=== PATIENT | female | born 1940 | race Caucasian/White ===

== ENCOUNTER → 2016-11-01 | Outpatient (CLI) | payer OTHER ==
--- NOTE | 2016-11-01 17:23 | MA ---
Screening Digital Mammogram With Tomosynthesis and iCAD - November 01, 2016 Indication: Routine screening. Personal history of bilateral breast cancer. Technique: Standard digital CC projections were obtained. Digital breast tomosynthesis was performed in the MLO projection with reconstruction at 1.0-mm slice thickness. Composite MLO views were recons tructed. This examination was processed by the iCAD computer-aided detection system. Comparison: August 2015, February 2014, January 2013, and December 2010 Breast density: Type C. Findings: CAD was reviewed. Heterogeneous indeterminate microcalcifications have developed along the anterior margin of the left lumpectomy bed. Bilateral lumpectomy scarring is otherwise unchanged. Impression: Increasing indeterminate microcalcifications along the anterior margin of the left lumpec lottie bed may be delayed dystrophic calcification associated with fat necrosis. BI-RADS 0: Needs additional imaging evaluation. Recommendation: Spot magnified CC, MLO and true lateral views of the left lumpectomy bed. The patient's information is entered into a reminder system with a target due date for her next mammo gram. [facility] will send a result letter to the patient.
== END ==
LOC: FIMAGING 15:34
DX: Z12.31 Encounter for screening mammogram for malignant neoplasm of breast (principal); Z85.3 Personal history of malignant neoplasm of breast
CPT/HCPCS: G0202

== ENCOUNTER → 2016-11-20 | Outpatient (CLI) | payer OTHER ==
--- NOTE | 2016-11-20 09:55 | MA ---
Diagnostic Digital Mammogram Left Breast With iCAD Analysis Reason for examination: Evaluate increasing left breast microcalcifications identified on the screeni ng study November 01, 2016. Technique: Craniocaudal and oblique views are obtained. The examination is processed by the iCAD comp uter-aided detection system. Findings: Additional views confirm a cluster of coarse microcalcifications which have an appearance o f evolving benign macrocalcification.. No associated soft tissue mass is seen. Impression: Probably benign microcalcifications, BI-RADS 3. Recommendation: 6 month unilateral mammographic follow-up. I have reviewed this examination with Dr. Hodge and he is in agreement with the interpretation as w ell as follow-up recommendation. A verbal report with follow-up recommendation was given to the patient. [facility] with send a result letter.
== END ==
LOC: FIMAGING 09:24
PROVIDERS: ATTEND Internal Medicine Hematology & Oncology
DX: R92.0 Mammographic microcalcification found on diagnostic imaging of breast (principal)
CPT/HCPCS: G0206

== ENCOUNTER → 2017-05-15 | Outpatient (CLI) | payer OTHER | LOC: FIMAGING 14:17 | PROVIDERS: ATTEND Internal Medicine Hematology & Oncology | DX: R92.1 Mammographic calcification found on diagnostic imaging of breast (principal) | CPT/HCPCS: G0206 ==

== ENCOUNTER 2017-05-16 18:06 | Emergency (ER) | payer OTHER ==
[2017-05-16 18:23] VITALS: TEMP 98.2
--- NOTE | 2017-05-16 18:48 | EDPHY ---
H & P Stated Complaint: ? infection r elbow/fall1 week ago Time Seen by Provider: 05/16/17 18:48 - Personal History Current Tetanus/Diphtheria Vaccine: Unsure - Medical/Surgical History Hx Asthma: No Hx Chronic Respiratory Disease: No Hx Diabetes: No Hx Cardiac Disease: No Hx Renal Disease: No Hx Cirrhosis: No Hx Alcoholism: No Hx HIV/AIDS: No Hx Splenectomy or Spleen Trauma: No Other PMH: ostophrosis, Breast CA; B lumpectomy w/ lymph node removal, ploymyalgia ,. Ovarian cyst, R knee scope; L foot fx; appy; - Social History Smoking Status: Former smoker Constitutional: Initial Vital Signs Temperature (C) 36.8 C 05/16/17 18:21 Heart Rate 94 05/16/17 18:21 Respiratory Rate 16 05/16/17 18:21 Blood Pressure 162/81 H 05/16/17 18:21 O2 Sat (%) 95 05/16/17 18:21 O2 Delivery Mode Room Air Allergies/Adverse Reactions: No Allergies [NKDA] Allergy (Verified 05/16/17 18:20) Home Medications: Medication Instructions Recorded Calcium/Magnesium/Vit D3 [Calcium 2 each PO DAILY 11/16/15 500 mg Tablet] Cholecalciferol Vit D3 [Vitamin D3 1,000 units PO DAILY 11/16/15 (*)] Lisinopril [Zestril 40 mg (*)] 40 mg PO HS 11/16/15 Prolia Unk Dose 1 dose SC Q180D 11/16/15 amLODIPine BESYLATE [Norvasc 2.5 2.5 mg PO HS 11/16/15 mg (*)] Acetaminophen [Tylenol 325mg (*)] 325 - 650 mg PO Q6 PRN #0 tab 12/09/15 Cephalexin [Keflex Oral Liquid] 500 mg PO TID #300 bottle 05/16/17 Medical Decision Making ED Course/Re-evaluation: CHIEF COMPLAINT: Infection to right arm HISTORY OF PRESENT ILLNESS: This patient is a 76 year old female complaining of possible infection of a wound on her right arm secondary to a mechanical fall several days ago. She has been treating her multiple abrasions, but noted one area became swollen and red. Today, the area is painful and she has noticed a purulent discharge. She denies fever, chills, nausea, vomiting, or other associated symptoms. REVIEW OF SYSTEMS: A 10 point review of systems was performed and is negative with the exception of the elements mentioned in the history of present illness. PHYSICAL EXAM: HR, BP, O2 Sat, RR. Temp noted General Appearance: Alert, well hydrated, appropriate, and non-toxic appearing. Head: Atraumatic without scalp tenderness or obvious injury Eyes: Pupils equal, round, reactive to light and accommodation, EOMI, no trauma , no injection. Ears: Clear bilaterally, no perforation, normal landmarks Nose: Atraumatic, no rhinorrhea, clear. Throat: There is no erythema or exudates, no lesions, normal tonsils, mucus membranes moist. Neck: Supple, nontender, no lymphadenopathy. Respiratory: No retractions, no distress, no wheezes, and no accessory muscle use. Lungs are clear to auscultation bilaterally. Cardiovascular: Regular rate and rhythm, no murmurs, rubs, or gallops. Good capillary refill all extremities. Gastrointestinal: Abdomen is soft, nontender, non-distended, no masses, no rebound, no guarding, no peritoneal signs. Musculoskeletal: Normal active ROM of all extremities, atraumatic. Neurological: Alert, appropriate, and interactive. Nonfocal neuro exam. Skin: Quarter-sized swollen, erythematous area on right forearm just distal to the elbow with a small amount of purulent discharge noted. No rashes, good turgor, no nodules on palpation. Past medical history: Osteoporosis, breast cancer, polymyalgia, ovarian cyst, right knee scope, left foot fx Past surgical history: Lumpectomy w/lymph node removal, appendectomy, Family history: Noncontributory Social history: . Lives in [place]. at bedside. DIFFERENTIAL DIAGNOSIS: Includes but not limited to cellulitis MEDICAL DECISION MAKIN76 year old female presents with a skin infection secondary to a healing wound on her right forearm sustained during a fall last week. She does not show any signs of systemic infection at this point. Plan to treat with antibiotics. The patient states she cannot swallow pills, and requests chewable or liquid form medication. Plan to discharge home in good condition with prescription for liquid Keflex. Follow up and return precautions discussed. The patient is comfortable with this plan. - Data Points Medications Given: Discontinued Medications Cephalexin (Keflex 250mg/5ml Prepack) 1 btl TAKEHOME EDNOW ONE PRN Reason: Protocol Stop: 05/16/17 18:53 Last Admin: 05/16/17 19:23 Dose: 1 btl Departure - Departure Disposition: Home, Routine, Self-Care Clinical Impression: Skin infection Condition: Good Instructions: Cellulitis (ED), Acute Wounds (ED) Additional Instructions: 1. Take your Keflex as prescribed, two teaspoons 3 times a day for 10 days. It is important to finish your entire course of antibiotics, even if your arm is feeling better. 2. Follow up with your primary care physician next week for symptoms unresolved. 3. Return to the emergency department if you develop fever, chills, increased redness, streaking, or discharge from the wound, or other worsening of condition. Referrals: Christa Herrera MD [Primary Care Provider] - As per Instructions Prescriptions: Cephalexin [Keflex Oral Liquid] 500 mg PO TID #300 bottle Report Scribed for: Bryant Nance Report Scribed by: Monique Schmitt Date of Report: 05/16/17 Time of Report: 18:52
[2017-05-16] MEDS ORDERED: CEPHALEXIN 250MG/5ML PREPACK BTL TAKEHOME ONE (18:52)
[2017-05-16 19:50] VITALS: BP 170/90; PULSE 92; RESP 18; O2SAT 93
== END 2017-05-16 19:49 | disposition home or self-care (01) ==
DX: L08.9 Local infection of the skin and subcutaneous tissue, unspecified (principal); Z85.3 Personal history of malignant neoplasm of breast; Z87.891 Personal history of nicotine dependence

== ENCOUNTER → 2017-08-01 | Outpatient (CLI) | payer OTHER | LOC: FIMAGING 14:01 | PROVIDERS: ATTEND Internal Medicine | DX: S42.291D Other displaced fracture of upper end of right humerus, subsequent encounter for fracture with routine healing (principal) ==

== ENCOUNTER → 2017-11-09 | Outpatient (CLI) | payer OTHER | LOC: FIMAGING 14:43 | PROVIDERS: ATTEND Internal Medicine Hematology & Oncology | DX: R92.0 Mammographic microcalcification found on diagnostic imaging of breast (principal); Z85.3 Personal history of malignant neoplasm of breast ==

== ENCOUNTER → 2018-02-05 | Outpatient (CLI) | payer OTHER | LOC: FIMAGING 14:25 | PROVIDERS: ATTEND Internal Medicine Rheumatology | DX: Z13.820 Encounter for screening for osteoporosis (principal); M81.0 Age-related osteoporosis without current pathological fracture; Z78.0 Asymptomatic menopausal state; Z79.52 Long term (current) use of systemic steroids; Z98.890 Other specified postprocedural states ==

== ENCOUNTER → 2018-12-11 | Outpatient (CLI) | payer OTHER | LOC: FIMAGING 15:17 | PROVIDERS: ATTEND Internal Medicine Hematology & Oncology | DX: Z12.31 Encounter for screening mammogram for malignant neoplasm of breast (principal); Z85.3 Personal history of malignant neoplasm of breast ==

== ENCOUNTER 2019-04-04 07:06 | Inpatient (IN) | payer OTHER | END 2019-04-05 12:07 | disposition home or self-care (01) | LOC: F3N 07:06 ==